=== PATIENT | female | born 1985 | race Caucasian/White ===

== ENCOUNTER 2021-07-27 13:05 | Emergency (ER) | payer OTHER, SELFPAY ==
--- NOTE | ~2021-07-27 | US_ITS ---
EXAMINATION: US abdomen limited DATE: 07/27/2021 14:32 INDICATION: Upper abdominal pain. Nausea. TECHNIQUE: Multiple grayscale and Doppler ultrasound images of the abdomen were obtained. COMPARISON: None FINDINGS: The visualized portions of the head and body of the pancreas are normal. The liver is tim l left focal lesion. No liver surface nodularity. There is normal flow in main portal vein. The gallb ladder is normal in size and contains gallstones. Gallbladder wall thickening is noted. There are com et tail artifacts at the gallbladder fundus, consistent with adenomyomatosis. There was no sonographi c Garner sign. The common duct is normal and measures 3 mm. IMPRESSION: 1. Cholelithiasis. Gallbladder wall thickening may be secondary to chronic cholecystitis, chronic cory er disease, or interstitial edema. Reviewed, dictated and finalized at location A. S AND MARKETING COORDINATOR IMPRESSION: 1. Cholelithiasis. Gallbladder wall thickening may be secondary to chronic chol ecystitis, chronic liver disease, or interstitial edema.
[2021-07-27 13:24] VITALS: BP 110/86; PULSE 77; RESP 18; TEMP 36.6; O2SAT 100
--- NOTE | 2021-07-27 13:48 | ED.GENADULT ---
HPI - General Adult General Chief complaint: Abdominal Pain Stated complaint: abd pain Time Seen by Provider: 07/27/21 13:29 Source: patient and RN notes reviewed History of Present Illness HPI narrative: Patient is a 35 y/o female complaining of intermittent abdominal pain for 10 years. She states that her last current episode started yesterday. Her pain is located in epigastric area. She describes her pain as throbbing and rates it as 5/10. Pain radiates to her back sometimes. Eating seems to make it worse. She has some nausea, but no vomiting or diarrhea. Related Data Allergies Allergy/AdvReac Type Severity Reaction Status Date / Time diphenhydramine Allergy Unknown RASH Verified 07/27/21 13:54 Review of Systems Constitutional: Constitutional: Denies chills, Denies fever(s), Denies headache(s) and Denies weakness Eyes: Eyes: Denies blurry vision ENT: Denies headache(s) and Denies neck pain Cardiovascular: Cardiovascular: Denies chest pain and Denies dyspnea Respiratory: Respiratory: Denies cough and Denies dyspnea Gastrointestinal: Gastrointestinal: Reports abdominal pain, Denies diarrhea, Reports nausea and Denies vomiting Genitourinary: Genitourinary: Denies hematuria and Denies dysuria Musculoskeletal: Musculoskeletal: Denies back pain and Denies neck pain Neurologic: Denies headache(s) and Denies weakness Exam Const: General: no acute distress and well developed Orientation/consciousness: oriented to person, oriented to place, oriented to time and patient oriented x3 HENMT: Head: normocephalic Ears: external ears normal General nose exam: Normal external nose present Eyes: General: appearance normal, both eyes and all related structures Conjunctivae: conjunctivae normal Neck: Neck: normal visual inspection and full ROM Chest: Chest palpation & inspection: normal inspection of the chest and no tenderness Resp: Effort & Inspection: normal respiratory effort Auscultation: clear to auscultation bilaterally Cardio: Rate: regular rate Rhythm: regular rhythm GI: GI Palp: No abdominal tenderness and Yes Soft to palpation Skin: General skin exam: normal color and turgor normal Neuro: General: oriented to person, oriented to place, oriented to time and patient oriented x3 Cognition (Neuro): normal cognition Extrem: General: normal to inspection, full ROM and no pedal edema Psych: Appearance: grossly normal Mental Status: mental status grossly normal Affect: normal affect Course Consultations Consultation #1: Discussed with Dr. Blount, who agrees with plan for discharge and patient can call his office for follow up. Date: 07/27/21 Time: 15:44 Vital Signs Vital signs: Vital Signs Temperature 36.6 C 07/27/21 13:24 Pulse Rate 77 07/27/21 13:24 Respiratory Rate 18 07/27/21 13:24 Blood Pressure 110/86 07/27/21 13:24 Pulse Oximetry 100 07/27/21 13:24 Temperature 36.6 C 07/27/21 13:24 Pulse Rate 85 07/27/21 16:00 Respiratory Rate 15 07/27/21 16:00 Blood Pressure 116/74 07/27/21 16:00 Pulse Oximetry 99 07/27/21 16:00 Medical Decision Making Vital Signs Vital Signs: Vital Signs Temperature 36.6 C 07/27/21 13:24 Pulse Rate 77 07/27/21 13:24 Respiratory Rate 18 07/27/21 13:24 Blood Pressure 110/86 07/27/21 13:24 Pulse Oximetry 100 07/27/21 13:24 Temperature 36.6 C 07/27/21 13:24 Pulse Rate 85 07/27/21 16:00 Respiratory Rate 15 07/27/21 16:00 Blood Pressure 116/74 07/27/21 16:00 Pulse Oximetry 99 07/27/21 16:00 Lab Data Result diagrams: 07/27/21 14:06 07/27/21 14:06 Labs: Lab Results 07/27/21 07/27/21 07/27/21 Range/Units 14:06 14:06 14:06 WBC 6.6 (4.5-10.0) K/mm3 RBC 4.99 (4.2-5.4) M/mm3 Hgb 12.5 (12.0-15.0) g/dL Hct 38.7 (37.0-47.0) % MCV 77.6 L (80-100) fl MCH 25.1 L (26-34) pg MCHC 32.3 (32-36) g/dl RDW 15.4 H (11.5-14.5) % Plt Count
[2021-07-27] MEDS: BELLADONNA ALK/PHENOB ELIX 10 ML, MAG HYDROX/ALUMINUM HYD/SIMETH 30 ML, LIDOCAINE HCL 2... PO (14:04)
[2021-07-27 14:20] LABS: Basophils Absolute Auto 0.1 K/mm3 (0.0-0.1); Basophils Percent Auto 0.9 % (0.2-1.2); Eosinophils Absolute Auto 0.1 K/mm3 (0-0.3); Eosinophils Percent Auto 1.5 % (0-4.4); Hematocrit 38.7 % (37.0-47.0); Hemoglobin 12.5 g/dL (12.0-15.0); Immature Granulocyte Absolute 0.01 K/mm3 (0.00-0.031); Immature Granulocyte Percent A 0.2 % (0-0.5); Lymphocytes Absolute Auto 2.39 K/mm3 (0.9-3.2); Lymphocytes Percent Auto 36.3 % (18.3-44.2); Mean Corpuscular HGB Conc 32.3 g/dl (32-36); Mean Corpuscular Hemoglobin 25.1 pg (26-34); Mean Corpuscular Volume 77.6 fl (80-100); Mean Platelet Volume 10.4 fl (7.4-10.4); Monocytes Absolute Auto 0.5 K/mm3 (0.1-0.6); Neutrophils Absolute Auto 3.6 K/mm3 (1.3-6.7); Neutrophils Percent Auto 54.1 % (45.5-73.1); Platelet Count Result 303 k/mm3 (150-375); Red Blood Count 4.99 M/mm3 (4.2-5.4); Red Cell Distribution Width 15.4 % (11.5-14.5); White Blood Count 6.6 K/mm3 (4.5-10.0)
[2021-07-27 14:32] LABS: Add Urine Microscopic? YES; Alanine Aminotransferase 11 U/L (4-35); Albumin Level 4.1 g/dL (3.5-5.1); Alkaline Phosphatase 68 U/L (38-126); Anion Gap 9 mmol/L (8-16); Appearance Urine Cloudy (Clear); Aspartate Amino Transferase 20 U/L (14-36); Bilirubin Urine Negative (Negative); Bilirubin,Total 0.5 mg/dL (0.2-1.3); Blood Urea Nitrogen 8 mg/dL (7-17); Blood Urine Negative (Negative); Calcium 9.2 mg/dL (8.4-10.2); Carbon Dioxide 21 mmol/L (22-30); Chloride 106 mmol/L (98-107); Color Urine Yellow (Yellow); Estimated CRCL calculation 104 ml/min; Estimated Glomerular Filt Rate > 60; Glucose 89 mg/dL (65-110); Glucose Urine UA Negative (Negative); Ketones Urine 1+ mg/dL (Negative); Leukocyte Esterase Ur Negative LEU/UL (Negative); Lipase 35 U/L (23-300); Mucus Urine Few /lpf; Nitrate Urine Negative (Negative); Potassium 3.6 mmol/L (3.4-5.0); Protein Urine Negative (Negative); Sodium 136 mmol/L (137-145); Specific Grav Ur 1.024 (1.001-1.035); Squamous Epithelial Cell Urine Many /hpf (Few); Urobilinogen Urine Negative mg/dL (<2.0)
[2021-07-27 15:07] VITALS: BP 112/81; PULSE 81; RESP 15; O2SAT 99
[2021-07-27 16:00] VITALS: BP 116/74; PULSE 85; RESP 15; O2SAT 99
== END 2021-07-27 16:02 | disposition home or self-care (01) ==
PROVIDERS: Emergency Provider Emergency Medicine
DX: K80.10 Calculus of gallbladder with chronic cholecystitis without obstruction (principal)
CPT/HCPCS: 36415; 76705; 80053; 81001; 81025; 83690; 85025; 99284; A9270

== ENCOUNTER 2021-09-15 16:52 | Outpatient (CLI) | payer OTHER, SELFPAY ==
[2021-09-15 17:29] LABS: Alanine Aminotransferase 12 U/L (4-35); Albumin Level 4.3 g/dL (3.5-5.1); Alkaline Phosphatase 75 U/L (38-126); Amylase 68 U/L (30-110); Aspartate Amino Transferase 19 U/L (14-36); Bilirubin,Total 0.4 mg/dL (0.2-1.3); Lipase 52 U/L (23-300)
== END 2021-09-15 16:53 | disposition home or self-care (01) ==
LOC: ANHLAB 16:53
PROVIDERS: Visit Provider Surgery
DX: K80.10 Calculus of gallbladder with chronic cholecystitis without obstruction (principal)
CPT/HCPCS: 36415; 80076; 82150; 83690; 86850; 86900; 86901

== ENCOUNTER 2021-09-17 00:33 | Day surgery (SDC) | payer OTHER, SELFPAY ==
--- NOTE | 2021-09-12 16:56 | PC.NURSE ---
Addendum entered by Cat Paul RN 09/12/21 17:08: Told patient about Hibiclens Original Note: Report to the Outpatient Waiting Room, entrance under the green pavilion located off [facility], at time 0630 on 09-17-21. OR Time: 0830. - You and your visitor will be asked a series of questions to screen for COVID 19 for your protection. - A mask is required within the hospital. - No visitors allowed at this time. Preoperative COVID Testing Requirements: No COVID Test needed if: (proof is required; if not received patient will have Rapid Test prior to entry) - Patient has received COVID Vaccine at least 14 days prior to procedure date or - Patient has positive COVID test result within last 90 days of surgery date. COVID Test needed if above criteria is not met If not COVID vaccinated a COVID test must be conducted within 72 hours of surgery and patient is asked to isolate self from time of testing until procedure. You will go to the [facility] for your COVID testing. The [facility] site is located at the corner of [address] [facility]. You will only be called if COVID results are positive and your surgeon may reschedule your elective surgery date. Patients may have clear liquids (water, carbonated beverages, clear teas, apple juice) until 3 hours prior to surgery with a maximum of 20 ounces. 0530 - No food from midnight until time of surgery - Infants may have breast milk until 4 hours before surgery, infant formula 6 hours prior to surgery. - Children will be allowed to drink immediately following surgery. If applicable, please bring a bottle or sippy cup to assist with drinking. Juice, water, soda, and popsicles are readily available. For infants on formula, please bring formula the day of surgery. Pacifiers are allowed. Take the following medications with a SIP of water the morning of surgery: None Medications to discontinue per physician: N/A Please no make-up, nail syrian, hairspray, perfume, deodorant, or body powder the day of surgery. No jewelry (including any body piercings) or valuables the day of surgery, leave them at home. Please take a shower or bath the night before, or the morning of, surgery with an antibacterial soap. Wear comfortable, loose fitting clothing. Children are encouraged to wear pajamas. - Jewelry must be removed prior to entering the operating room. Rings and piercings that are not removed may be cut off. - The hospital will not accept responsibility for valuables. - Please leave all valuables, including medications, at home the day of surgery. If you are going home after surgery, a licensed motor driver must drive you home. - NO public transportation without another adult. - We recommend that an adult stay with you for 24 hours following discharge. - We also recommend that you do not drive, make important decision, drink alcoholic beverages, or take any drugs that were not prescribed by your health care provider for at least 24 hours after your discharge time. For Pediatric surgeries, we recommend two adults accompany the child home (only one inside the building at this time). Follow any additional instructions given to you from your surgeon. Telephone instructions given to Jennifer Will and asked if any additional questions and then verbalized understanding. Patient advised to call surgeon office or pre surgery nurse liaison [phone] if any additional questions.
[2021-09-12 17:11] VITALS: BMI 22.6
--- NOTE | 2021-09-16 14:12 | PM.SD2 ---
Same Day Admit/Disch: HPI History of Present Illness Chief complaint: chronic cholecystitis with stones Narrative: Jennifer Will is a 35 year old female Who has had postprandial upper abdominal pain off and on for about 10 years. Pain has gotten more frequent in the last few months. Particularly, on July 26, she developed epigastric pain that radiated through her to her back and was associated with nausea. The pain was persistent and she went to the emergency room the next day. Evaluation there suggested cholecystitis with gallstones. Ultrasound was done which showed gallstones with gallbladder wall thickening. She was discharged on ciprofloxacin and a low-fat diet. After being seen in the office, she is now taken to surgery for laparoscopic cholecystectomy. 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 She follows a strict vegetarian diet and really has not noticed any foods that trigger the abdominal pain. [facility] Past Medical History Medical History Brain tumor Hx of migraines Neurofibromatosis, type 1 Surgical History Surgical History H/O craniotomy Brain tumor removed 1994 Family History Family History Mother Breast cancer Unknown Depression Social History Social History Social History: caffeine use: coffee & soda 2-4 cups/day Smoking status: Never smoker Second hand tobacco smoke exposure: No Alcohol intake: current Drinks per week: 1 Alcohol use details: occasionally Substance use: never Substance use type: does not use Living arrangements: with family Spiritual care concerns: No Same Day Admit/Disch: Med Pre-admit Medications Home Medications Medication Instructions Recorded Confirmed Type etonogestrel 0.12 mg-ethinyl 1 vag ring VAGINAL ONCE 07/31/21 09/17/21 History estradiol 0.015 mg/24 hr vaginal ring hydrocodone-acetaminophen 1 - 2 tablet PO Q6H PRN #10 tablet 09/17/21 Rx ketorolac 10 mg PO Q6H 4 Days #16 tablet 09/17/21 Rx Exam Const: General: comfortable, no acute distress, alert and awake HENMT: Head: normocephalic and atraumatic Mouth: Yes Normal oral and palatal mucosa present Eyes: Conjunctivae: conjunctivae normal Pupils: Equal, round and reactive pupils present EOM: EOMs intact bilaterally Neck: Neck: normal visual inspection, no lymphadenopathy and nontender Resp: Effort & Inspection: normal respiratory effort Auscultation: clear to auscultation bilaterally Cardio: Rate: regular rate Rhythm: regular rhythm Heart sounds: no gallops, no murmurs and no rubs GI: Inspection: non-distended, no visible herniation and other ( Multiple neurofibromas throughout) GI Palp: Yes Soft to palpation, No Tenderness to palpation present (GI), No Hepatomegaly present, No Splenomegaly present and No Hernia present Skin: Lesions: no lesions Rashes: no rashes Neuro: General: no focal motor deficits and CN's II-XI intact bilaterally Cranial nerves: Yes Equal, round and reactive pupils present, Yes Bilaterally intact EOM present, Yes facial symmetry and Yes Midline tongue present Speech: normal speech Motor exam (neuro): 5/5 motor strength present throughout and Motor abnormalities not present Extrem: General: no clubbing, cyanosis or edema and edema Psych: Affect: normal affect Thought process: Normal thought process present Insight: Good insight present (Psych) DS: Summary Time Spent with Patient Time attestation: Total time spent providing and/or coordinating discharge services: DS: Admitting Diagnosis Discharge Date 09/17/2021 Admitting Diagnosis chronic cholecystitis, cholelithiasis- plan to proceed with laparoscopic cholecystectomy. The procedure the risks th
[2021-09-17] VITALS (11 sets, daily range): BP systolic 104–125; BP diastolic 67–78; PULSE 61–116; RESP 12–20; TEMP 36.1–36.3; O2SAT 98–100
[2021-09-17] MEDS: LACTATED RINGERS 1,000 ML 30 ML IV CONT (06:52)
[2021-09-17] MEDS: ACETAMINOPHEN 500 MG TABLET 1000 MG PO (06:53)
[2021-09-17] MEDS: KETOROLAC 15 MG/ML VIAL (*BKC) IV PUSH (06:53)
--- NOTE | 2021-09-17 07:18 | WPDHPUPDATE1 ---
History and Physical Update Update Date/Time: 09/17/21 07:18 History and Physical has been reviewed, including an updated exam of the patient. There are NO changes in the patient's condition. Risks, benefits, and alternatives have been discussed and questions answered. Patient agrees to proceed with procedure.
--- NOTE | 2021-09-17 07:43 | P.PNAN_ITS ---
Anes - Initial Pre Proc Eval Procedure: Operation Date: 09/17/21 08:30 Proposed Procedures p Laparoscopic Cholecystectomy - Deni Blount MD Date/Time: 09/17/21 07:43 Surgeon: Deni Blount MD Pre Op Diagnosis: chronic cholecystitis with stones Patient Data Age: 35 Gender: F Height: 1.68 m Weight: 64.9 kg Last Vital Signs Temp 36.1 C L 09/17/21 06:31 Pulse 66 09/17/21 06:31 Resp 16 09/17/21 06:31 BP 125/73 09/17/21 06:31 Pulse Ox 100 09/17/21 06:31 Allergies Allergy/AdvReac Type Severity Reaction Status Date / Time diphenhydramine Allergy Mild RASH Verified 09/17/21 07:16 Home Medications Medication Instructions Recorded Confirmed Type etonogestrel 0.12 mg-ethinyl 1 vag ring VAGINAL ONCE 07/31/21 09/17/21 History estradiol 0.015 mg/24 hr vaginal ring Patient hx anesthesia problems: none Family hx anesthesia problems: none Results Review: All pre-operative results and documents have been reviewed as part of the pre-operative evaluation. [facility] Past Medical History Medical History Brain tumor Hx of migraines Neurofibromatosis, type 1 Surgical History Surgical History H/O craniotomy Brain tumor removed 1994 Family History Family History Mother Breast cancer Unknown Depression Social History Social History Social History: caffeine use: coffee & soda 2-4 cups/day Smoking status: Never smoker Second hand tobacco smoke exposure: No Alcohol intake: current Drinks per week: 1 Alcohol use details: occasionally Substance use: never Substance use type: does not use Living arrangements: with family Spiritual care concerns: No Anes - Eval Final PreProcedure Day of Procedure 09/17/21 07:43 Patient weight: normal Heart: regular rate and rhythm Lungs: clear to auscultation Airway: Mallampati scale class II Neurological: alert and oriented Last oral intake: >/= 8 hours ASA classification: III Emergent: no Anesthetic plan: proceed Anesthesia type and monitoring: general ETT and standard monitoring Results Review: All pre-operative results and documents have been reviewed as part of the pre-operative evaluation. Informed Consent: The patient's anesthetic plan and its attendant risks and benefits were discussed with the patient/family/POA. Questions were solicited and answers provided to the satisfaction of the patient/family/POA.
[2021-09-17] MEDS: SCOPOLAMINE 1.5 MG PATCH TRANSDERM (08:03)
[2021-09-17] MEDS: ceFAZolin 2 GM/D5W 50 ML 2 GM/50 ML BAG IVPB (08:35)
[2021-09-17] MEDS: BUPIVACAINE/EPINEPHRINE 0.5% 30 ML VIAL INFILTRATE (08:45)
--- NOTE | 2021-09-17 08:51 | W.PM.PROC2 ---
Procedure Note - Detailed Date of Procedure 09/17/21 Pre-op Diagnosis chronic cholecystitis with stones Post-op Diagnosis same Procedure Performed Laparoscopic cholecystectomy Surgeon Deni Blount MD Chemistry Physics Teacher Charlene Cary [facility] Anesthesia general and local Indications Patient is a 35-year-old woman with postprandial right upper quadrant abdominal pain. She was in the emergency room with this in July. Imaging showed gallstones and a thickened gallbladder wall. She is taken to surgery now for laparoscopic cholecystectomy. Findings Gallstones noted, mild chronic inflammation, no biliary ductal dilatation, normal appearing liver. Description of Procedure The patient was taken to surgery and induced into general anesthesia. The abdomen was prepped and draped. Trocars were placed in the usual fashion using local anesthetic and 5 mm applied Medical optical trocars. The gallbladder was decompressed with a laparoscopic aspirator. The cholecystotomy was closed with a Vicryl endoloop. The gallbladder was then retracted anterosuperiorly. Dissection was carried out in the cholecystohepatic triangle. The cystic duct and cystic artery were dissected out very clearly. Critical view was achieved. We securely clipped and divided the cystic duct and cystic artery. The gallbladder was then dissected free of its remaining peritoneal attachments to the liver. Cautery was used for hemostasis on the gallbladder fossa. The gallbladder was placed in Endo-Catch bag and retrieved through the 10 11 epigastric trocar site. The trocar was replaced and we reviewed the right upper quadrant and gallbladder fossa. All looked good with no evidence of bleeding or bile leakage. We evacuated CO2 and removed the trocar sleeves. Skin wounds were closed with subcuticular running 4-0 Monocryl skin suture. The wounds were dressed with Exofin surgical adhesive. Patient was awakened and taken to recovery in good condition. Sponge and needle counts were correct x2. Estimated Blood Loss -5 Drains No Packing No Pathology yes (Gallbladder) Complications No immediate complications Condition stable Disposition PACU
[2021-09-17] MEDS: oxyCODONE HCL (*CRX) 5 MG TAB IR PO (11:07)
== END 2021-09-17 12:02 | disposition home or self-care (01) ==
PROVIDERS: Visit Provider Surgery
PROC: 0FT44ZZ Resection of Gallbladder, Percutaneous Endoscopic Approach (ICD-10-PCS; CPT 47562; principal; 2021-09-17 08:30)
DX: K80.10 Calculus of gallbladder with chronic cholecystitis without obstruction (principal); Q85.01 Neurofibromatosis, type 1
CPT/HCPCS: 47562; 88304; A9270; C1713; J0690; J1100; J1885; J2250; J2270; J2704; J2710; J3010; J7120

== ENCOUNTER 2022-10-29 21:09 | Emergency (ER) | payer BC, SELFPAY ==
--- NOTE | ~2022-10-29 | CT_ITS ---
Non-contrast Head CT History: History of brain tumor Technique: Axial non-contrast imaging of the brain was performed. Dose reduction technique was used on this scan by utilizing automated exposure control and iterative reconstruction technique. The dose -length product (DLP) was 605.33 mGy-cm. Findings: There is no evidence of intracranial hemorrhage, mass lesion, or acute infarct. There is f ocal area of encephalomalacia in the left frontal region with overlying left frontal craniotomy. The ventricles and subarachnoid spaces are normal in size. The calvarium otherwise appears normal. The visualized paranasal sinuses and mastoid air cells are clear. Impression: No acute abnormality seen. 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 Reviewed, dictated and finalized at [facility]. ER MATERIAL HANDLER Impression: No acute abnormality seen. 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
[2022-10-29 21:36] VITALS: BP 129/71; PULSE 69; RESP 18; TEMP 36.6; O2SAT 100
[2022-10-29 23:11] VITALS: BP 128/65; PULSE 65; RESP 18; O2SAT 99
--- NOTE | 2022-10-30 01:01 | ED.GENADULT ---
HPI - General Adult General Chief complaint: Headache Stated complaint: headache Time Seen by Provider: 10/30/22 00:22 History of Present Illness HPI narrative: This is a 37-year-old female presenting ED with chief complaint of headache. Patient has history of migraines. She has been having intermittent migraine pain for the last 9 days. It is primarily on the right side, pounding, nonradiating 9/10 in intensity although it does come and go throughout the day. She has had this experience many times in the past but does not usually last 9 days at a time. She usually takes Aleve with relief although that has not worked. There are no exacerbating factors. It is associated with photophobia and nausea but no vomiting. She denies fever, chills, neck stiffness or trauma. The patient did have a brain tumor removed when she was 9 years old she is concerned that this might be a brain tumor. Related Data Home Medications Medication Instructions Recorded Confirmed etonogestrel 0.12 mg-ethinyl 1 vag ring vaginal ONCE 07/31/21 10/02/21 estradiol 0.015 mg/24 hr vaginal ring (NuvaRing) Allergies Allergy/AdvReac Type Severity Reaction Status Date / Time diphenhydramine Allergy Mild RASH Verified 10/02/21 08:42 [facility] Past Medical History Medical History Brain tumor Hx of migraines Neurofibromatosis, type 1 Surgical History Surgical History H/O craniotomy Brain tumor removed 1994 Hx laparoscopic cholecystectomy 09/17/21 Family History Family History Mother Breast cancer Unknown Depression Social History Social History Social History: caffeine use: coffee & soda 2-4 cups/day Smoking status: Never smoker Second hand tobacco smoke exposure: No Alcohol intake: current Drinks per week: 1 Alcohol use details: occasionally Substance use: never Substance use type: does not use Living arrangements: with family Spiritual care concerns: No Exam Narrative: APPEARANCE: No apparent distress. Head: atraumatic. EYES: EOMI, NOSE: Atraumatic NECK: Trachea midline RESPIRATORY: No increased rate of breathing CARDIOVASCULAR: RRR, ABDOMINAL: Non-distended MUSCULOSKELETAl: No obvious deformities NEURO: Alert. Cranial nerves 2-12 grossly intact. Sensation light touch, motor function cerebellar function intact for 4 extremities. Gait exam was normal. SKIN:: Warm, dry. Normal color PSYCHIATRIC: Normal affect Course Vital Signs Vital signs: Vital Signs Temperature 97.8 F 10/29/22 21:36 Pulse Rate 69 10/29/22 21:36 Respiratory Rate 18 10/29/22 21:36 Blood Pressure 129/71 10/29/22 21:36 Pulse Oximetry 100 10/29/22 21:36 Oxygen Delivery Room Air 10/29/22 21:36 Temperature 97.8 F 10/29/22 21:36 Pulse Rate 65 10/29/22 23:11 Respiratory Rate 18 10/29/22 23:11 Blood Pressure 128/65 10/29/22 23:11 Pulse Oximetry 99 10/29/22 23:11 Oxygen Delivery Room Air 10/29/22 21:36 Medical Decision Making [facility] Narrative Medical decision making narrative: -Presentation: 37-year-old female with history of migraines presenting to the ED with migraine pain. she is concerned that she has another brain tumor like when she had when she was 9 years old. -DDX includes but is not limited to: Migraines, brain tumor -Co-morbidities complicating care: migraines, neurofibromatosis 1, allergy to Benadryl -Social determinants of health: with 1 child at home. Works in finance. -External Chart Review: None -Hx from independent Sources: that -Discussion of Management/Consultants: none -Independent interpretation of studies: The head CT showed the previous surgical site but no new tumors. Dx tests considered but not ordered: -Procedures:
[2022-10-30] MEDS: PROCHLORPERAZINE EDISYLATE 10 MG/2 ML VIAL IM (01:08)
[2022-10-30] MEDS: ACETAMINOPHEN 500 MG TABLET 1000 MG PO (01:08)
[2022-10-30] MEDS: IBUPROFEN 400 MG TABLET 800 MG PO (01:08)
== END 2022-10-30 01:42 | disposition home or self-care (01) ==
PROVIDERS: Emergency Provider Emergency Medicine; PCP Family Medicine
DX: G43.909 Migraine, unspecified, not intractable, without status migrainosus (principal); Q85.01 Neurofibromatosis, type 1
CPT/HCPCS: 70450; 96372; 99284; A9270; J0780

== ENCOUNTER 2023-12-29 08:36 | Outpatient (CLI) | payer BC, SELFPAY ==
--- NOTE | ~2023-12-29 | US_ITS ---
US breast BI complete DATE: 12/29/2023 10:25 Please refer to combined bilateral diagnostic and complete bilateral breast ultrasound examination re port. IMPRESSION: BI-RADS Category 3: Probably benign finding Recommendation: Targeted left 9:00 breast ultrasound follow-up in 6 months Reviewed, dictated and finalized at Location [facility]. Reviewed, dictated and finalized at location B.
--- NOTE | ~2023-12-29 | MM_ITS ---
EXAMINATION: MM diagnostic kristal BI w mau HISTORY: Left breast lump at physical examination TECHNIQUE: ML, MLO and CC 3-D tomosynthesis images of both breasts were performed and synthetic 2-D i mages were generated. Bilateral rotated lateral CC views. CAD analysis was submitted and interpreted. High resolution complete bilateral breast ultrasound examination including all 4 quadrants and subar eolar area of each breast was performed. COMPARISON: None BREAST PARENCHYMAL COMPOSITION: The breasts are heterogeneously dense, which may obscure small masses . FINDINGS: MAMMOGRAPHIC FINDINGS: No suspicious mass or architectural distortion, malignant calcification, skin thickening or retractio n is detected. ULTRASOUND: Right breast: 6:00 1 cm from nipple: 2.8 x 4.5 mm cyst 7:00 1 cm from nipple: 2.3 x 3.6 mm cyst Left breast: 5:00 5 cm from nipple: 2.9 x 5.8 x 8 mm well-circumscribed hypoechoic lesion without internal vascula rity posterior shadowing, benign in appearance 9:00 9 cm from nipple: Subcutaneous 2.1 x 6.5 mm circumscribed hypoechoic lesion, benign in appearanc e 9:00 5 cm from nipple: There is an irregular hypoechoic approximately 2.1 x 3.1 mm lesion. This has a configuration suggestive of a benign-appearing lymph node that there is some posterior shadowing. Si x-month follow-up ultrasound targeted to this area is recommended. 10:00 3 cm from nipple: Subcutaneous well-circumscribed 1.5 x 4.9 mm likely sebaceous cyst IMPRESSION: 1. Probable benign finding 2. 6 month targeted left breast ultrasound follow-up 9:00 5 cm from nipple is recommended BI-RADS category 3, probably benign findings. Reviewed, dictated and finalized at location B. IMPRESSION: 1. Probable benign finding 2. 6 month targeted left breast ultrasound follow-up 9:00 5 cm from nipple is r ecommended BI-RADS category 3, probably benign findings.
== END 2023-12-29 08:37 ==
PROVIDERS: PCP Physician Assistant Medical; Visit Provider Obstetrics & Gynecology
DX: Z12.31 Encounter for screening mammogram for malignant neoplasm of breast (principal); N63.20 Unspecified lump in the left breast, unspecified quadrant; R92.8 Other abnormal and inconclusive findings on diagnostic imaging of breast
CPT/HCPCS: 76641; 77062; 77066; G0279

== ENCOUNTER 2024-07-13 10:24 | Outpatient (CLI) | payer BC, SELFPAY ==
--- NOTE | ~2024-07-13 | US_ITS ---
EXAMINATION TYPE: US breast LT limited COMPARISON: 12/29/2023 REASON FOR STUDY: Unspecified lump in the left breast, unspecified quadrant TECHNIQUE: Targeted sonographic evaluation of the left breast was performed. INTERPRETATION: At the 9:00 position left breast, 5 cm from the nipple, there is a stable 3 mm hypoechoic structure, with stable appearance. IMPRESSION: Stable 3 mm hypoechoic structure 9:00 position left breast, as detailed above, most compatible with b enign lesion. BI-RADS CATEGORY: BI-RADS 2: Benign Reviewed, dictated and finalized at location . EXAMINER IMPRESSION: Stable 3 mm hypoechoic structure 9:00 position left breast, as detailed above, most compatible with benign lesion. BI-RADS CATEGORY: BI-RADS 2: Benign
== END 2024-07-13 10:25 | disposition home or self-care (01) ==
LOC: MICIMG 10:25
PROVIDERS: PCP Obstetrics & Gynecology; Visit Provider Obstetrics & Gynecology
DX: N63.24 Unspecified lump in the left breast, lower inner quadrant (principal)
CPT/HCPCS: 76642

== ENCOUNTER 2025-01-01 13:46 | Outpatient (CLI) | payer OTHER, SELFPAY ==
--- NOTE | ~2025-01-01 | US_ITS ---
EXAMINATION TYPE: US breast LT limited COMPARISON: 07/13/2024, 12/29/2023 REASON FOR STUDY: unspecified lump in unspecified breast TECHNIQUE: Targeted sonographic evaluation of the left breast was performed. INTERPRETATION: There is a stable 3 mm hypoechoic ovoid mass at the 9:00 position, 5 cm from the nipple. IMPRESSION: Stable 3 mm hypoechoic mass the 9:00 position of the left breast. Stability is compatible with benign ity. BI-RADS CATEGORY: BI-RADS 2: Benign Reviewed, dictated and finalized at location . IMPRESSION: Stable 3 mm hypoechoic mass the 9:00 position of the left breast. Stability is compatible with benignity. BI-RADS CATEGORY: BI-RADS 2: Benign
== END 2025-01-01 13:47 | disposition home or self-care (01) ==
PROVIDERS: PCP Obstetrics & Gynecology; Visit Provider Obstetrics & Gynecology
DX: N63.25 Unspecified lump in the left breast, overlapping quadrants (principal)
CPT/HCPCS: 76642

== ENCOUNTER 2025-07-04 08:54 | Outpatient (CLI) | payer OTHER, SELFPAY ==
--- NOTE | ~2025-07-04 | MMUS_ITS ---
EXAMINATION: US breast BI complete, MM diagnostic kristal BI w mau HISTORY: Follow-up breast masses. TECHNIQUE: Additional 3-D tomosynthesis images of the breasts were performed and synthetic 2-D images were generated. CAD analysis was submitted and interpreted. High resolution bilateral complete breast ultrasound was performed. COMPARISON: 12/29/2023 BREAST PARENCHYMAL COMPOSITION: Dense: The breasts are heterogeneously dense, which may obscure small masses FINDINGS: MAMMOGRAPHIC FINDINGS: There are no suspicious masses, calcifications or architectural distortion in either breast to suggest malignancy. ULTRASOUND: Complete US of all 4 quadrants of the breast/s and retroareolar region was reviewed. Right breast: At 8:00, 1 cm from the nipple there is a 5 mm cyst. No suspicious masses are identified in the right breast to suggest malignancy. Left breast: At 5:00, 5 cm from the nipple there is a 5 mm oval hypoechoic mass with low level internal echoes, no posterior features and no internal vascularity, compatible with a minimally complicated cyst. At 9:00, 5 cm from the nipple there is a stable 4 mm hypoechoic mass with echogenic hilum, most compatible with benign intramammary lymph node. No suspicious masses are identified in the left breast to suggest malignancy. IMPRESSION: 1. No evidence for malignancy in either breast. Benign findings. 2. Routine yearly screening mammogram and regular clinical breast examination are recommended. BI-RADS Category 2: Benign finding(s). Reviewed, dictated and finalized at location B. CH PATHOLOGIST IMPRESSION: 1. No evidence for malignancy in either breast. Benign findings. 2. Routine yearly screening mammogram and regular clinical breast examination a re recommended. BI-RADS Category 2: Benign finding(s).
== END 2025-07-04 08:55 | disposition home or self-care (01) ==
LOC: MICIMG 08:55
PROVIDERS: PCP Obstetrics & Gynecology; Visit Provider Obstetrics & Gynecology
DX: R92.8 Other abnormal and inconclusive findings on diagnostic imaging of breast (principal)
CPT/HCPCS: 76641; 77062; 77066; G0279